=== PATIENT | female | born 1935 | race African-American/Black ===

== ENCOUNTER 2017-06-27 03:20 | Inpatient (IN) | payer MEDICARE, OTHER ==
[~2017-06-27] VITALS: Ht 167.6 cm; Wt 49.9 kg
[2017-06-27] MEDS ORDERED: VANCOMYCIN 1 G PREMIX 200 ML IV SCH (04:50)
[2017-06-27] MEDS ORDERED: SODIUM CHLORIDE 0.9% 1,000 ML IV SCH (04:50)
[2017-06-27] MEDS ORDERED: PIPERACILLIN/TAZ 3.375G PREMIX 50 ML IV ONE (08:08)
[2017-06-27 10:03] LABS: BG BASE EXCESS 0.2 mmol/L (-2.0-2.0); BG CARBOXYHEMOGLOBIN 0.6 % (0.5-1.5); BG DEOXYHEMOGLOBIN 3.3 % (0.0-5.0); BG FRACTION INSPIRED OXYGEN 21; BG HCO3 ACT 25.9 mmol/L (22.0-26.0); BG METHEMOGLOBIN 0.4 % (0.0-1.5); BG OXYGEN SATURATION 96.7 % (92.0-98.5); BG OXYHEMOGLOBIN 95.7 % (94.0-97.0); BG PCO2 45.4 mmHg (35.0-45.0); BG PH 7.374 (7.350-7.450); BG PO2 92.2 mmHg (75.0-100.0); BG SAMPLE SITE RIGHT RADIAL; BG TOTAL HEMOGLOBIN 15.5 g/dL (12.0-18.0); BG VENT MODE ROOM AIR
[2017-06-27 11:00] VITALS: BP 184/118
[2017-06-27] MEDS ORDERED: NITROGLYCERIN 0.4MG TABLET SL SL PRN (11:15)
[2017-06-27] MEDS ORDERED: TRAMADOL 50MG TABLET PO PRN (11:15)
[2017-06-27] MEDS ORDERED: NA PHOS,M-B/NA PHOS,DI-BA ENEMA 118ML PR PRN (11:15)
[2017-06-27] MEDS ORDERED: ACETAMINOPHEN 325MG TABLET PO PRN (11:15)
[2017-06-27] MEDS ORDERED: MAGNESIUM/ALUMINUM HYDROXIDE/SIMETHICONE 30ML UDC PO PRN (11:15)
[2017-06-27] MEDS ORDERED: DOCUSATE SODIUM 100MG CAPSULE PO PRN (11:15)
[2017-06-27] MEDS ORDERED: ONDANSETRON HCL 4MG/2ML VIAL IV PRN (11:15)
[2017-06-27] MEDS ORDERED: CLONIDINE 0.1MG TABLET PO PRN (11:15)
[2017-06-27] MEDS ORDERED: IPRATROPIUM/ALBUTEROL 0.5-3(2.5)MG/3ML NEB INH PRN (11:15)
[2017-06-27 11:31] LABS: COLOR URINE YELLOW (YELLOW); GLUCOSE URINE NEGATIVE (NEGATIVE); KETONES URINE NEGATIVE (NEGATIVE); LEUKOCYTE ESTERASE URINE 1+ (NEGATIVE); NITRITE URINE NEGATIVE (NEGATIVE); OCCULT BLOOD URINE TRACE (NEGATIVE); PROTEIN URINE 2+ (NEGATIVE); UROBILINOGEN URINE 0.2 E.U./dL (0.2-1.0)
[2017-06-27 11:32] LABS: CLARITY URINE SL HAZY (CLEAR)
[2017-06-27 12:00] VITALS: BP 184/118
[2017-06-27 12:09] LABS: *AMPHETAMINES SCREEN URINE NEGATIVE (NEGATIVE); *BARBITURATES SCREEN URINE NEGATIVE (NEGATIVE); *BENZODIAZEPINES SCREEN URINE NEGATIVE (NEGATIVE); *COCAINE SCREEN URINE NEGATIVE (NEGATIVE); CANNABINOID URINE SCREEN NEGATIVE (NEGATIVE); METHADONE URINE SCREEN NEGATIVE (NEGATIVE); OPIATES URINE SCREEN NEGATIVE (NEGATIVE); PHENCYCLIDINE URINE SCREEN NEGATIVE (NEGATIVE)
[2017-06-27] MEDS: LEVOFLOXACIN 250MG PREMIX 50 ML IV SCH (14:30)
[2017-06-27 16:12] VITALS: BP 141/87
[2017-06-27 16:15] LABS: *AMPHETAMINES SCREEN URINE NEGATIVE (NEGATIVE); *BARBITURATES SCREEN URINE NEGATIVE (NEGATIVE); *BENZODIAZEPINES SCREEN URINE NEGATIVE (NEGATIVE); *COCAINE SCREEN URINE NEGATIVE (NEGATIVE); CANNABINOID URINE SCREEN NEGATIVE (NEGATIVE); METHADONE URINE SCREEN NEGATIVE (NEGATIVE); OPIATES URINE SCREEN NEGATIVE (NEGATIVE); PHENCYCLIDINE URINE SCREEN NEGATIVE (NEGATIVE)
[2017-06-27 16:20] LABS: HEMATOCRIT 47.5 % (36.0-48.0); HEMOGLOBIN 15.5 g/dL (12.0-16.0); MEAN CORPUSCULAR HEMOGLOBIN 31.2 pg (28.0-32.0); MEAN CORPUSCULAR VOLUME 95.6 fL (81.0-99.0); PLATELET 77 x1000/uL (130-400); RED BLOOD CELL COUNT 4.97 mill/uL (4.2-5.4); RED CELL DISTRIBUTION WIDTH 15.4 % (11.6-14.6)
[2017-06-27 17:00] LABS: CREATINE KINASE MB FRACTION 5.7 ng/mL (0.5-3.6); TROPONIN I 0.21 ng/mL (0.00-0.04)
[2017-06-27 17:25] LABS: CLARITY URINE CLOUDY (CLEAR); COLOR URINE YELLOW (YELLOW); GLUCOSE URINE NEGATIVE (NEGATIVE); KETONES URINE NEGATIVE (NEGATIVE); LEUKOCYTE ESTERASE URINE TRACE (NEGATIVE); NITRITE URINE NEGATIVE (NEGATIVE); OCCULT BLOOD URINE 3+ (NEGATIVE); PROTEIN URINE 1+ (NEGATIVE); SPECIFIC GRAVITY URINE 1.022 (1.005-1.030); UROBILINOGEN URINE 0.2 E.U./dL (0.2-1.0)
[2017-06-27] MEDS ORDERED: ENOXAPARIN 30MG/0.3ML SYR SUBCUT SCH (18:00)
[2017-06-27] MEDS: WATER IV SCH (18:00)
[2017-06-27] MEDS: CLOPIDOGREL 75MG TABLET PO SCH (18:00)
[2017-06-27] MEDS: DEXT 5% IV SCH (18:00)
[2017-06-27 20:00] VITALS: BP 135/92
[2017-06-27] MEDS ORDERED: ATORVASTATIN CALCIUM 40MG TABLET PO SCH (21:00)
[2017-06-28] VITALS (7 sets, daily range): BP systolic 105–151; BP diastolic 65–97
[2017-06-28 00:59] LABS: CREATINE KINASE MB FRACTION 5.3 ng/mL (0.5-3.6); TROPONIN I 0.18 ng/mL (0.00-0.04)
[2017-06-28 07:21] LABS: HEMATOCRIT 43.2 % (36.0-48.0); MEAN CORPUSCULAR HEMOGLOBIN 30.6 pg (28.0-32.0); MEAN CORPUSCULAR VOLUME 94.6 fL (81.0-99.0); PLATELET 75 x1000/uL (130-400); RED BLOOD CELL COUNT 4.56 mill/uL (4.2-5.4)
[2017-06-28] MEDS ORDERED: PNEUMOCOCCAL 23-VAL P-SAC VAC 0.5 ML IM ONE (08:00)
[2017-06-28] MEDS ORDERED: INFLUENZA VIRUS VACCINE 0.5ML SYR IM ONE (08:00)
[2017-06-28] MEDS ORDERED: PANTOPRAZOLE SODIUM 40 MG/VIAL IV SCH (09:00)
[2017-06-28] MEDS: CLOPIDOGREL 75MG TABLET PO SCH (09:01)
[2017-06-28] MEDS: DEXT 5% IV SCH (09:22)
[2017-06-28] MEDS: WATER IV SCH (09:22)
[2017-06-28 12:41] LABS: BASOPHILS % 0.4 % (0.0-2.0); EOSINOPHILS % 0.5 % (0.0-5.0); HEMATOCRIT. 43.2 % (36.0-48.0); HEMOGLOBIN. 13.8 g/dL (12.0-16.0); LYMPHOCYTES % 11.4 % (20.0-50.0); MEAN CORPUSCULAR HEMOGLOBIN 30.3 pg (28.0-32.0); MEAN CORPUSCULAR VOLUME 95.1 fL (81.0-99.0); MEAN PLATELET VOLUME 10.2 fl (7.4-10.4); MONOCYTES % 6.5 % (2.0-8.0); NEUTROPHILS % 81.2 % (40.0-76.0); PLATELET 70 x1000/uL (130-400); RED BLOOD CELL COUNT 4.55 mill/uL (4.2-5.4); RED CELL DISTRIBUTION WIDTH 15.3 % (11.6-14.6)
[2017-06-28 13:02] LABS: CARBON DIOXIDE 28 mEq/L (21-32); CHLORIDE 120 mEq/L (98-107)
[2017-06-28] MEDS: LEVOFLOXACIN 250MG PREMIX 50 ML IV SCH (13:03)
[2017-06-29] MEDS ORDERED: LEVOFLOXACIN 250MG TABLET PO SCH (11:00)
== END 2017-06-28 17:10 | disposition short-term general hospital (02) | DRG 64 ==
LOC: ER 09:54 → 5WST 10:00
PROVIDERS: ADMIT Internal Medicine; ATTEND Internal Medicine
DX: I63.9 Cerebral infarction, unspecified (principal); G93.41 Metabolic encephalopathy; N17.0 Acute kidney failure with tubular necrosis; E87.0 Hyperosmolality and hypernatremia; M62.82 Rhabdomyolysis; N39.0 Urinary tract infection, site not specified; I10 Essential (primary) hypertension
CPT/HCPCS: 36415; 36600; 70450; 70551; 71010; 80048; 80053; 80061; 80305; 81001; 82375; 82550; 82553; 82805; 83036; 84484; 85025; 85027; 87086; 93005; 93306; 93970; 99285; C1893; C9113; J1650; J1956; J2543; J7060; J7070; A4315